=== PATIENT | female | born 1995 | race Caucasian/White ===

== ENCOUNTER 2017-04-10 14:31 | Emergency (ER) | payer MEDICAID ==
[2017-04-10] MEDS ORDERED: NS 0.9% 1000 ML* 1,000 ML IV ONE (14:44)
[2017-04-10] MEDS ORDERED: Ondansetron INJ* 2 MG/ML VIAL IV ONE (14:44)
[2017-04-10 16:14] LABS: Hematocrit 40 % (35-47); Hemoglobin 13.5 g/dl (12.0-16.0); Mean Corpuscular HGB Conc 34 g/dl (31-36); Mean Corpuscular Hemoglobin 30 pg (27-31); Mean Corpuscular Volume 88 fL (80-97); Mean Platelet Volume 7 um3 (7.4-10.4); Red Blood Count 4.52 10^6/ul (4.0-5.4); Red Cell Distribution Width 13 % (10.5-15); White Blood Count 9.7 10^3/ul (3.5-10.8)
[2017-04-10 16:40] LABS: ALT 12 U/L (7-52); AST 17 U/L (13-39); Albumin 4.4 g/dL (3.2-5.2); Alkaline Phosphatase 53 U/L (34-104); Anion Gap 5 mmol/L (2-11); Blood Urea Nitrogen 8 mg/dL (6-24); C Reactive Protein < 1.00 mg/L (< 5.00); CO2 Carbon Dioxide 28 mmol/L (22-32); Calcium 9.3 mg/dL (8.6-10.3); Chloride 103 mmol/L (101-111); EGFR African American 129.4 (>60); EGFR Non-African American 100.6 (>60); Globulin 2.5 g/dL (2-4); Glucose 74 mg/dL (70-100); Potassium 3.7 mmol/L (3.5-5.0); Sodium 136 mmol/L (133-145); Total Protein 6.9 g/dL (6.4-8.9)
--- NOTE | 2017-04-10 17:01 | RAD ---
INDICATION: Ataxia. COMPARISON: Comparison is made with a prior MRI of the brain from November 21, [address] of the brain from January 04, 2015. TECHNIQUE: Contiguous axial sections of the brain were obtained from the skull base to the vertex without contrast. FINDINGS: The ventricles, cisterns and sulci are within normal limits. No significant focal abnormality or mass effect is seen. There is no evidence for hemorrhage. No significant focal osseous abnormality is seen. The visualized portion of the paranasal sinuses and mastoid air cells appear clear. IMPRESSION: NO EVIDENCE FOR GROSS ACUTE INFARCT, MASS EFFECT OR HEMORRHAGE.
[2017-04-10 17:57] LABS: Urine Bilirubin Negative (Negative); Urine Glucose Negative (Negative); Urine Nitrite Negative (Negative)
[2017-04-10 19:17] VITALS: BP 110/51
--- NOTE | 2017-04-10 21:54 | CONS ---
CONSULTATION REPORT: DATE OF CONSULT: 04/10/17 LOCATION: She is currently in the ED. REASON FOR CONSULT: Accidental Lamictal overdose. HISTORY OF PRESENT ILLNESS: Ms. Ta is a very nice 21-year-old female who has a history of seizure disorder for several years. She is followed by Dr. Morel who initially saw her in October 2014. She does have a history of an EEG done in the past which was abnormal demonstrating some focal left temporal occipital mixed theta- delta range, slow wave paroxysms suggestive of some focal underlying organic changes at those regions. None had any clear-cut intermixed spike nor sharp wave discharges nor did such occur isolated during the tracing, remote from these slowings. Again, these findings may suggest some focal underlying organic changes at that region; however, no epileptiform discharges were seen. She has no significant risk factors for seizures including no history of infantile seizures or febrile seizures. No history of head injury or meningitis. No family history of seizures that she is aware of. In August and September 2014, she developed generalized tonic-clonic like seizures. She was seen by Dr. Morel and at that time a workup was done. She was subsequently put on Lamictal and has been treated with that medication. Most recently, she has been on 200 mg p.o. b.i.d. She saw Dr. Morel on Thursday and her dose was increased but rather than 100 mg pills, she had 200 mg pills. Her dose was increased to 400 mg in the morning and 600 mg at night. She has been taking that since Thursday and over the last several days, has become more confused, more dizzy. She notes seeing double at times. She notes feeling off balance. She has felt very nauseated, some abdominal pain, and more somnolent. This has been worsening over the last several days and today she woke up and was very confused and had difficulty walking. Based on this, our office was called and her history was obtained. She was instructed to go to the ER. Upon arrival in the ER, she actually looks good. She is sitting in a wheelchair. She is pleasant, able to answer questions. Her boyfriend and aunt were at the bedside. She does note that she smokes marijuana occasionally. Her last use was yesterday. She has been clean from alcohol for little over a month. Prior to that, she was drinking heavily. She continues to have some intermittent seizure-like activity. She states that her last generalized tonic-clonic seizure was a while back, but she does have occasional episodes where she stares off or gets somewhat confused. She is postictal afterwards. She does have occasional bladder incontinence and tongue biting most of the time. She states that she felt like that she was going to have a seizure yesterday, but did not have a full-blown seizure. She currently notes some nausea. She has been "spitting up but no copious vomiting." She notes some abdominal pain that is intermittent in nature, some dizziness, feelings of off balance and some double vision. She denies any shortness of breath, dyspnea on exertion, chest pain, headache, hearing changes. She has noted some mild perioral numbness, but otherwise no focal numbness, tingling, or weakness. No difficulty speaking or swallowing. She has had some difficulty ambulating. She also has been exposed to some people that have had the flu, but she has not had any flu-like symptoms, although she does report a mild low- grade fever this morning. PAST MEDICAL HISTORY: As above. PAST SURGICAL HISTORY: Negative. MEDICATIONS: Include: 1. Lamictal 200 mg p.o. b.i.d., recently increased and over the last 5 days has been taking 400 mg in the morning and 600 at night. 2. She also takes ibuprofen as needed. ALLERGIES: AMOXICILLIN, PENICILLIN, and SULFA DRUGS. FAMILY HISTORY: Noncontributory. No family history of seizures. SOCIAL HISTORY: She was recently fired from her work. She was a hotel houseman. She smokes occasional marijuana, last use yesterday. She was drinking heavily until about a month ago. She was drinking up to 12 pack per day, but states she has been clean since that time. She denies any recent sexual activity. States that her last menstrual period was approximately 1 month ago. States that she is not . REVIEW OF SYSTEMS: Her review of systems in 14-organ systems as noted above, otherwise negative. PHYSICAL EXAM: Vital Signs: Temperature 99.1, pulse rate of 83, respiratory rate of 20, pulse ox 100%, blood pressure 113/53. In general, she is a well- nourished, well-developed female, in no acute distress. She is sitting in her hospital bed. She is pleasant, well dressed, well groomed and her boyfriend and aunt are at the bedside. HEENT: She is normocephalic, atraumatic. Sclerae are anicteric. Mucous membranes are moist. Oropharynx is clear. Nares are patent. Neck is supple. No thyromegaly. No carotid bruits. Chest: Clear to auscultation bilaterally. Cardiovascular: Regular rate and rhythm without murmurs. Abdomen: Nondistended. No significant tenderness. Extremities: No clubbing, cyanosis, or edema. Her skin is warm and dry. No rashes or lesions. On neurologic exam, she is awake, alert, and oriented x3. Her speech is fluent. There is no dysarthria or repetition. Recall of recent and remote events is intact. Vocabulary is intact. Her mood is dysthymic. Affect, mood congruent. Cranial nerves II through XII: Pupils are equal, round, and reactive to light. Extraocular muscles are intact. There is no misalignment or strabismus noted. She does note diplopia in all visual fonseca. Visual fonseca to confrontation are intact. Her face is symmetric. Sensation is intact. Hearing is intact bilaterally. Her palate raises symmetrically. Tongue is midline. Sternocleidomastoid and trapezius are intact. Her motor exam, 5/5 throughout. Tone and bulk are both normal. DTRs are 2+ and symmetric in the upper and lower extremities bilaterally. Babinski is downgoing. [id number] , rapid alternating movements were intact without tremor. There is no resting tremor noted. No dysdiadochokinesia or dysmetria. Her gait, she stood up but felt off balance and I sat her back down. DIAGNOSTIC STUDIES/LAB DATA: Currently lab work, she has a CMP, a CBC with diff and a Lamictal level as well as a urine test pending. ASSESSMENT AND PLAN: Ms. Ta is a 21-year-old female who has a history of generalized tonic-clonic epilepsy, previously treated on Lamictal. Most recently, her dose was changed from 200 mg p.o. b.i.d. and over the last 5 days has been taking 400 mg in the morning and 600 mg at night. Over the last few days, has become more dizzy, nauseated, confused, double vision, some abdominal pain. She called the office this morning and was instructed by Dr. Lowery to go to the ER immediately. She arrived here. In general, she looks good. She denies any recent vomiting, but does feel some nausea and some abdominal pain. She is alert and oriented x3. Her examination is nonfocal except for some double vision and she feels unsteady when trying to walk, but otherwise, no focality to her examination. She denies any recent falls or head trauma. She denies any headache or neck stiffness. At this point, I suspect that she is suffering the ill effects of Lamictal toxicity. Typically, Lamictal toxicity is associated with blood dyscrasias, can be associated with dizziness and confusion, somnolence, nausea and vomiting. She did take her Lamictal dose 400 mg this morning. I discussed with the patient the pathophysiology of the medicine and the half life. The plan is to hold all medications for the next 24 hours. Her last dose was this morning. She is not to restart her medication until tomorrow night, at which point she will start her old dose of 200 mg p.o. b.i.d. We will check a complete metabolic profile as well as her CBC with diff to rule out any underlying liver dysfunction, blood dyscrasias, kidney dysfunction. She is going to be hydrated in the ER, treated with some Zofran. She feels like she can likely go home. We will watch her in the ER. If she stabilizes and does well and her nausea can be managed at home, I am okay if she goes home. She understands the plan to hold the Lamictal. I plan to schedule her to see us back on Thursday when in [place] as she has no transportation. She will return to the ER with any new symptoms or concerns. If she does not improve in the ER, she may be admitted overnight for observation. I would continue to hydrate her, hold her medication until tomorrow night, restarting at 200 mg p.o. b.i.d. at that point and treating her symptoms as necessary. Her examination is completely nonfocal other than the diplopia and balance issues, which both can be attributed to the Lamictal. I will have the ER doctor get a head CT to make sure there is no intracranial pathology. Thank you for the opportunity to participate in her care. [id number]/[facility] #: [id number] DELANEY
--- NOTE | 2017-04-12 08:20 | ED ---
Anant Venegas Angela, scribed for Mason Carlos MD on 04/10/17 at 1459 . Neurological HPI - HPI Summary HPI Summary: This pt is a 21 y/o female presenting to [facility] c/o diplopia, unsteady gait, lethargy, nausea/vomiting since yesterday at around 12:30. Pt reports she usually takes 400 mg of Lamictal but 4 days ago her dose was increased by her PCP. She states her dose was increased to 1000 mg/day. She has only taken 600 mg 4 days ago (on Thursday) and 400 mg 3 days ago (on Thursday). Pt states that upon waking up today she felt "off." She notes that since her medications were increased in dosage her symptoms have been worsening. Today while talking to her PCP she couldn't remember her . Pt was driving to her PCP's office in [place] when she realized her PCP was in his office in [place]. - History of Current Complaint Chief Complaint: EDGeneral Stated Complaint: NEEDS LAB WORK Time Seen by Provider: 04/10/17 14:44 Hx Obtained From: Patient Hx Last Menstrual Period: 01/16/15 Onset/Duration: Started days ago, Still Present Timing: Constant Pain Intensity: 0 Character: Visual Changes - diplopia, Other: - diplopia, unsteady gait, lethargy , nausea/vomiting, memory loss - Allergy/Home Medications Allergies/Adverse Reactions: Allergies Allergy/AdvReac Type Severity Reaction Status Date / Time Amoxicillin Allergy Unknown Verified 02/02/15 13:31 Reaction Details Penicillins [PCN] Allergy Unknown Verified 02/02/15 13:31 Reaction Details Sulfa Antibiotics Allergy Unknown Verified 02/02/15 13:31 Reaction Details dilantin AdvReac Intermediate GI Uncoded 02/02/15 13:31 Home Medications: Home Medications lamoTRIgine TAB(*) [LaMICtal TAB(*)] 200 mg PO BID 04/10/17 [History Confirmed 04/10/17] PMH/Surg Hx/FS Hx/Imm Hx Endocrine/Hematology History: Denies: Hx Diabetes Cardiovascular History: Denies: Hx Hypertension, Hx Pacemaker/ICD Sensory History: Denies: Hx Hearing Aid Psychiatric History: Denies: Hx Panic Disorder Infectious Disease History: No Infectious Disease History: Denies: Traveled Outside the [place] in Last 30 Days - Family History Known Family History: Negative: Hypertension, Diabetes - Social History Alcohol Use: Occasionally Alcohol Amount: uknown arrived 2209; intoxicated Hx Substance Use: Yes Substance Use Type: Reports: Marijuana Substance Use Comment - Amount & Last Used: generally a few times a day; none in past 4 days Hx Tobacco Use: Yes Smoking Status (MU): Light Every Day Tobacco Smoker Type: Cigarettes Amount Used/How Often: 3 cigarettes daily Length of Time of Smoking/Using Tobacco: 1 year off & on Review of Systems Positive: Other - lethargy. Negative: Fever, Chills Positive: Diplopia Cardiovascular: Negative Respiratory: Negative Positive: Vomiting, Nausea Genitourinary: Negative Neurological: Other - unsteady gait, memory loss. All Other Systems Reviewed And Are Negative: Yes Physical Exam - Summary Physical Exam Summary: VITAL SIGNS: Reviewed. GENERAL: Patient is a well-developed and nourished (MALE OR FEMALE) who is lying comfortable in the stretcher. Patient is not in any acute respiratory distress. HEAD AND FACE: No signs of trauma. No ecchymosis, hematomas or skull depressions. No sinus tenderness. EYES: PERRLA, EOMI x 2, No injected conjunctiva, no nystagmus. No photophobia. Pt has diplopia. EARS: Hearing grossly intact. Ear canals and tympanic membranes are within normal limits. MOUTH: Oropharynx within normal limits. NECK: Supple, trachea is midline, no adenopathy, no JVD, no carotid bruit, no c- spine tenderness, neck with full ROM. No meningeal signs, no Kernig's or brudzinskis signs. CHEST: Symmetric, no tenderness at palpation LUNGS: Clear to auscultation bilaterally. No wheezing or crackles. CVS: Regular rate and rhythm, S1 and S2 present, no murmurs or gallops appreciated. ABDOMEN: Soft, non-tender. No signs of distention. No rebound no guarding, and no masses palpated. Bowel sounds are normal. EXTREMITIES: FROM in all major joints, no edema, no cyanosis or clubbing. NEURO: Alert and oriented x 3. Speech is normal and follows commands. Pt has ataxia and diplopia, otherwise pt is neurologically intact. SKIN: Dry and warm GCS: 15 Triage Information Reviewed: Yes Vital Signs On Initial Exam: Initial Vitals Temp Pulse Resp BP Pulse Ox 99.1 F 83 20 113/53 100 04/10/17 14:39 04/10/17 14:39 04/10/17 14:39 04/10/17 14:39 04/10/17 14:39 Vital Signs Reviewed: Yes Diagnostics - Vital Signs Vital Signs Temp Pulse Resp BP Pulse Ox 04/10/17 14:39 99.1 F 83 20 113/53 100 - Laboratory Result Diagrams: 04/10/17 15:53 04/10/17 15:53 Lab Statement: Any lab studies that have been ordered have been reviewed, and results considered in the medical decision making process. - CT Brain CT CT Interpretation: No Acute Changes - IMPRESSION: No evidence for gross acute infarct, mass effect or hemorrhage. ED physician has reviewed this radiology report and agrees. CT Interpretation Completed By: Radiologist - EKG 1512 Cardiac Rate: NL - 83 bpm EKG Rhythm: Sinus Rhythm EKG Interpretation: No ST elevations Course/Dx - Course Assessment/Plan: This pt is a 21 y/o female presenting to [facility] c/o diplopia, unsteady gait, lethargy, nausea/vomiting since yesterday at around 12:30. Pt reports she usually takes 400 mg of Lamictal but 4 days ago her dose was increased by her PCP. She states her dose was increased to 1000 mg/day. She has only taken 600 mg 4 days ago (on Thursday) and 400 mg 3 days ago (on Thursday). Pt states that upon waking up today she felt "off." She notes that since her medications were increased in dosage her symptoms have been worsening. Today while talking to her PCP she couldn't remember her . Pt was driving to her PCP's office in [place] when she realized her PCP was in his office in [place]. Test results without any significant abnormalities. UA is negative for UTI. A head CT is recommended by Dr. Arreola, neurologist. CT head is negative for intracranial pathology. As per recommendation of Dr. Arreola, pt can be discharged home with instruction of start taking Lamictal 200 mg BID and two more at night. Pt will follow up with Dr. Arreola on Thursday. The pt is no longer nauseous; she was hydrated and has no other complaints. Family member will stay with the pt all these days until seen by Dr. arreola. Pt is hemodynamically stable , alert and oriented x3. - Diagnoses Provider Diagnoses: Lamictal overdose Discharge - Discharge Plan Condition: Stable Disposition: HOME Patient Education Materials: Adult Overdose (ED) Referrals: Hieu Carpio MD [Primary Care Provider] - Additional Instructions: Please follow up with your primary care provider. The documentation as recorded by the Anant moctezuma Angela accurately reflects the service I personally performed and the decisions made by , Mason Carlos MD.
== END 2017-04-10 18:12 | disposition home or self-care (01) ==
LOC: ED 14:31
DX: T42.6X1A Poisoning by other antiepileptic and sedative-hypnotic drugs, accidental (unintentional), initial encounter (principal); H53.2 Diplopia; R26.81 Unsteadiness on feet; R11.2 Nausea with vomiting, unspecified; R41.3 Other amnesia; Y92.9 Unspecified place or not applicable; Z88.0 Allergy status to penicillin; Z88.2 Allergy status to sulfonamides; Z88.8 Allergy status to other drugs, medicaments and biological substances; F12.90 Cannabis use, unspecified, uncomplicated; F17.210 Nicotine dependence, cigarettes, uncomplicated
CPT/HCPCS: 36415; 70450; 80053; 80175; 81003; 84702; 85025; 86140; 93005

== ENCOUNTER 2017-10-12 14:00 | Inpatient (IN) | payer OTHER ==
[2017-10-12] MEDS ORDERED: Acetaminophen TAB* 325 MG PO PRN (15:59)
[2017-10-12] MEDS ORDERED: LORazepam INJ* 2 MG/ML 1 ML VIAL IV PRN (15:59)
[2017-10-12] MEDS ORDERED: diPHENhydraMINE PO* 25 MG PO PRN (15:59)
--- NOTE | 2017-10-12 16:16 | ADMNOTE ---
Admission Note HPI - HPI Handedness: DOS 10/12/17 H&P right History of Present Illness: Lupis Ta is a 21 year old woman with a history of seizure-like events since 2014. She was initially evaluated by Dr. Morel in October 2014, reporting the onset of 3 generalized seizures within a few hours of each other, having never experienced a seizure in the past. His note indicates she had "felt weird" that morning, possibly unfocused. She reported feeling as though she could "taste something I was looking at", then lost consciousness and had generalized shaking. One of these events was associated with oral trauma and possibly incontinence. She underwent EEG which was reported to show left temporal slowing without discharges and MRI of the brain which was reported to be normal. She was started on Keppra and had irritability, so it was discontinued. She was then started on lamotrigine and phenytoin was briefly added because of a breakthrough seizure while titrating lamotrigine. She did not tolerate this and Keppra was briefly added back while she titrated lamotrigine, despite this causing mood problems. She noted triggers to include stress and anger. She continued to experience intermittent seizures until reaching a dose of 200mg BID , at which point she was seizure-free for several month until seizures returned. However, she endorsed heavy alcohol use at that time (September 2016), up to 12 beers per day. Lamotrigine was increased but she became toxic with a level of 23 in March 2017. She is now taking 200mg QAM and 300mg QPM and a level in April was around 11. Today, Lupis and her boyfriend give good history of the events. She reports that she often gets a warning of suddenly being able to taste or smell food. This can be almost anything and she describes recent events to include mohawk vanilla creamer and Cheetos. It is never unpleasant. She has two types of events. She has what they call "silent seizures" which involve her being unable to speak, staring straight ahead and fidgeting with both hands. She also has lip licking during these events. Her boyfriend says they last "less than 5 minutes" and sometimes do not progress past this but she will be confused afterward. Her periods of confusion have been getting worse such that she did not recognize family members recently and was doing strange things like googling herself and trying to find herself on Facebook even though she does not have a page on there. He estimates she has had 7 of these in the past 2 months with the most recent being a week ago. She can sometimes have 3 or 4 in a day when she does experience them. She sleeps excessively afterward, up to 16 hours. As a result, she is missing a lot of work. Sometimes these events then progress into the second type of event, which is a convulsion. Her boyfriend describes whole body shaking with eyes open, no clear head turning, lasting about a minute and often associated with oral trauma and sometimes urinary incontinence. The last time this occurred was about a month and a half ago. She does not know if lamotrigine has really helped. She does feel her events are related to stress, but also says she does not know what triggers them and they can be "random". She has a history of heavy drinking, as recently as earlier this month which was the anniversary of her father's in 2016 ( September 24). However, she denies ever noticing a connection between heavy drinking and seizures. She has used many illicit drugs in the past including snorting heroin, cocaine and taking "lots of pills", but she has not done any drugs aside from marijuana for the past 10 months. She requests help with navigating system because she's been trying to get SSI but has been directed back to her neurologist despite going to [facility], mental health, etc Epilepsy Risk Factors: Dropped from a rocking chair around 6 months of age, has a scar on her lip but no other known head trauma. Denies h/o HELIX COIL WINDER infection, learning disability. Thinks she was full term, met milestones on time. No known FH of epilepsy PNEA Risk Factors: H/o anxiety, depression, reports bipolar d/o. H/o polysubstance abuse. Best friend (Jake) just before these started and father of cancer just after. PMH/Surg Hx/FS Hx/Imm Hx Previously Healthy: Yes Endocrine/Hematology History: Denies: Hx Diabetes Cardiovascular History: Denies: Hx Hypertension, Hx Pacemaker/ICD Sensory History: Denies: Hx Hearing Aid Neurological History: Reports: Hx Seizures Psychiatric History: Reports: Hx Anxiety, Hx Depression, Hx Bipolar Disorder Denies: Hx Panic Disorder Infectious Disease History: Denies: Traveled Outside the [place] in Last 30 Days - Family History Known Family History: Negative: Hypertension, Diabetes - Social History Occupation: Employed Full-time - [employer] in [place] Alcohol Use: Occasionally - and heavy at times Hx Substance Use: Yes Substance Use Type: Reports: Marijuana Substance Use Comment - Amount & Last Used: daily Hx Tobacco Use: Yes Smoking Status (MU): Light Every Day Tobacco Smoker Type: Cigarettes Amount Used/How Often: 5 cigarettes daily Length of Time of Smoking/Using Tobacco: 1 year off & on EMU Exam - Exam Physical/Neurological Exam: Physical Exam: General: Well appearing in no acute distress. She is thin Eyes: normal conjunctiva, pupils were equal and reactive. Neck: supple, no bruit ENT: atraumatic, normal oropharynx Pulmonary: clear to auscultation, good respiratory effort Cardiac: regular rate and rhythmic, no murmurs/rubs/gallops, pulses palpable MSK: no extremity deformities Derm: no rashes or lesions Neurological Exam: Mental Status: Awake and alert. Oriented to person, place, and time. Fluent. Comprehension intact. Affect appropriate. Cranial Nerves: Visual fonseca full to confrontation. Pupils were equal, round, and reactive constricting from 3mm to 2mm. Versions were full and without nystagmus. Facial musculature and sensation were symmetric. Hearing grossly intact to finger rub. Palate was upgoing bilaterally. Tongue was midline. Shoulder shrug was symmetric. Motor: Bulk, tone, and strength were normal throughout. Pronator drift was absent. There were no abnormal movements. Sensory: Sensation to light touch, temperature intact. Romberg was deferred. Coordination: Finger to nose and heel to mathew were intact. Reflexes: 2+ throughout the upper and lower extremities with downgoing toes bilaterally. Gait: not observed EMU Review of Systems Review of Systems: A 12 point review of systems was completed and significantly positive for: weight loss despite good appetite. The remainder of the review was negative except as stated above in the HPI. EMU Diagnostics - Diagnostic Most Recent Vital Signs: not yet available Interim video-EEG long-term monitoring report: EEG 11/21/2014: left temporal slowing with some spread to occipital region, no discharges Radiology Impressions: MRI brain dated 11/21/14 interpreted as normal EMU Assessment/Plan - Assessment/Plan Assessment/Plan: This is a 21 year old right-handed woman with a history of events of staring associated with manual and oral automatisms as well as generalized convulsions since 2015. She has been treated with lamotrigine and continues to experience events, sometimes in clusters, despite compliance with medication. Triggers seem to include stress and emotion, particularly anger. The differential includes both epileptic and non-epileptic event, but given the description of events and previous EEG there is high suspicion for epilepsy, in particular localization-related arising from the left hemisphere given the report of speech arrest. She has been having trouble maintaining steady employment due to these events, recovery after the fact, and anxiety around having events while alone at work. In addition, her boyfriend has been instructed to stay home with her while she is recovering and has been missing work as well. They are requesting help with trying to get SSI for this reason. The goal of the present [facility] video/EEG monitoring session is to characterize these events and to evaluate the EEG for epileptiform activity. Plan: Admit to the Epilepsy Service, Dr. Mack attending marine oil terminal superintendent video EEG monitoring for the purpose of characterizing events above Seizure precautions IV lorazepam as needed for GTC. Call Dr Mack if given Home AED regimen: lamotrigine 200mg QAM and 300mg QPM. Decrease to 150mg tonight and 100mg tomorrow AM, then anticipate further decreasing to 50mg BID and then stop will request social work consult.
[2017-10-12] MEDS ORDERED: Lidocaine 1% MPF* 2 ML VIAL ONE (17:41)
[2017-10-12] MEDS ORDERED: Buffered Lidocaine 0.9% SYRIN* 5 ML/SYR SYRINGE ONE (17:43)
[2017-10-12] MEDS ORDERED: lamoTRIgine TAB(*) 100 MG PO SCH ×2 (18:00→20:00)
[2017-10-12] MEDS ORDERED: Nicotine Inhaler* 10 MG AMP INH PRN (18:18)
[2017-10-12] MEDS ORDERED: Mouth Piece, Nicotine* 1 EACH CARTRIDGE INH PRN (18:19)
[2017-10-13] MEDS ORDERED: lamoTRIgine TAB(*) 100 MG PO SCH ×2 (08:00→21:00)
[2017-10-13 10:32] VITALS: BP 104/50
--- NOTE | 2017-10-13 11:26 | PN ---
Epilepsy Service Progress Note Date of Service: 10/13/17 - Subjective Patient is having significant anxiety, crying, stating she wants to leave, hates hospitals. Has told nursing she wants to smoke weed and cigarettes. Has been using nicotine inhaler, offered nicotine patch. Boyfriend and aunt have reinforced that she needs to try to stay. She says she feels fine, does not feel like a seizure is going to happen and doesn't want to stay. Had lengthy discussion with pt. - Medications Active Medications: Acetaminophen (Tylenol Tab*) 650 mg PO Q6H PRN PRN Reason: PAIN Device (Nicotine Mouth Piece*) 1 each INH .FOR USE WITH MED PRN PRN Reason: CRAVINGS Last Admin: 10/12/17 18:18 Dose: 1 each Diphenhydramine HCl (Benadryl Po*) 25 mg PO Q6H PRN PRN Reason: ITCHING Lamotrigine (Lamictal Tab(*)) 100 mg PO QAM@0800 [facility] Last Admin: 10/13/17 07:57 Dose: 100 mg Lamotrigine (Lamictal Tab(*)) 150 mg PO QPM@2000 [facility] Last Admin: 10/12/17 19:56 Dose: 150 mg Lorazepam (Ativan Inj*) 1 mg IV Q8H PRN PRN Reason: Generalized Tonic Clonic Seizu Nicotine (Nicotine Inhaler*) 10 mg INH Q2H PRN PRN Reason: CRAVINGS Last Admin: 10/12/17 18:16 Dose: 10 mg EMU Diagnostics - Diagnostic Most Recent Vital Signs: Vital Signs: Temp Pulse Resp BP Pulse Ox 97.8 F 60 20 104/50 100 10/13/17 07:59 10/13/17 07:59 10/13/17 08:15 10/13/17 07:59 10/13/17 07:59 Interim video-EEG long-term monitoring report: #01 10/12: Medications: LTG 150mg PM and 100mg AM Not completely reviewed yet but up till 11pm last night, background was normal with PDR 10. No events EMU Exam - Exam Physical/Neurological Exam: Physical Exam: General: Crying, anxious, laying in bed with boyfriend. Eyes: injected conjunctiva 2/2 crying MSK: no extremity deformities Derm: no rashes or lesions Neurological Exam: Mental Status: Awake and alert. Fluent. Comprehension intact. Affect anxious, emotional Cranial Nerves: Face symmetric. Motor: Moves all extremities antigravity equally Sensory: not retested. Coordination: not retested. Reflexes: not retested Gait: not observed EMU Progress Note Assessment/P - Assessment/Plan Assessment: 21 year old right-handed woman with a history of events of staring associated with manual and oral automatisms as well as generalized convulsions since 2015. She has been treated with lamotrigine and continues to experience events, sometimes in clusters, despite compliance with medication. Triggers seem to include stress and emotion, particularly anger. The differential includes both epileptic and non-epileptic event, but given the description of events and previous EEG there is high suspicion for epilepsy, in particular localization- related arising from the left hemisphere given the report of speech arrest. She is having a lot of trouble tolerating this admission due to nicotine and marijuana habits as well as anxiety. Discussed importance of current admission and that if she leaves now, we will not know anything more about her condition or how to help her than we did before she came in. Offered nicotine patch, she declines. Will try prn hydroxyzine for anxiety. Pt also worried about boyfriend leaving for his 12 hour work shift tonight, but others will be coming to stay with her. Encouraged her to stay, provided reassurance, she seemed agreeable to staying at this point. No typical events recorded yet. Plan: * Continue sider mechanic video EEG monitoring to capture typical episodes * Seizure precautions * IV lorazepam as needed for GTC. Call Dr Mack if given * Home AED regimen: lamotrigine 200mg QAM and 300mg QPM. Decrease to 50mg BID x2 doses and then stop * social work consult. * reminded pt that as we are decreasing meds, it would be best to have at least 24 hours notice if she wishes to be discharged early if we need to restart meds. * hydroxyzine 25mg po TID prn anxiety * continue nicotine inhaler
[2017-10-13] MEDS: hydrOXYzine HCL TAB* 25 MG PO PRN ×2 (11:56→11:57)
[2017-10-13] MEDS ORDERED: lamoTRIgine TAB(*) 100 MG PO ONE (15:00)
--- NOTE | 2017-10-13 15:12 | DS ---
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 She was initially evaluated by Dr. Morel in October 2014, reporting the onset of 3 generalized seizures within a few hours of each other, having never experienced a seizure in the past. His note indicates she had "felt weird" that morning, possibly unfocused. She reported feeling as though she could "taste something I was looking at", then lost consciousness and had generalized shaking. One of these events was associated with oral trauma and possibly incontinence. She underwent EEG which was reported to show left temporal slowing without discharges and MRI of the brain which was reported to be normal. She was started on Keppra and had irritability, so it was discontinued. She was then started on lamotrigine and phenytoin was briefly added because of a breakthrough seizure while titrating lamotrigine. She did not tolerate this and Keppra was briefly added back while she titrated lamotrigine, despite this causing mood problems. She noted triggers to include stress and anger. She continued to experience intermittent seizures until reaching a dose of 200mg BID , at which point she was seizure-free for several month until seizures returned. However, she endorsed heavy alcohol use at that time (September 2016), up to 12 beers per day. Lamotrigine was increased but she became toxic with a level of 23 in March 2017. She is now taking 200mg QAM and 300mg QPM and a level in April was around 11. Today, Lupis and her boyfriend give good history of the events. She reports that she often gets a warning of suddenly being able to taste or smell food. This can be almost anything and she describes recent events to include portuguese vanilla creamer and Cheetos. It is never unpleasant. She has two types of events. She has what they call "silent seizures" which involve her being unable to speak, staring straight ahead and fidgeting with both hands. She also has lip licking during these events. Her boyfriend says they last "less than 5 minutes" and sometimes do not progress past this but she will be confused afterward. Her periods of confusion have been getting worse such that she did not recognize family members recently and was doing strange things like googling herself and trying to find herself on Facebook even though she does not have a page on there. He estimates she has had 7 of these in the past 2 months with the most recent being a week ago. She can sometimes have 3 or 4 in a day when she does experience them. She sleeps excessively afterward, up to 16 hours. As a result, she is missing a lot of work. Sometimes these events then progress into the second type of event, which is a convulsion. Her boyfriend describes whole body shaking with eyes open, no clear head turning, lasting about a minute and often associated with oral trauma and sometimes urinary incontinence. The last time this occurred was about a month and a half ago. She does not know if lamotrigine has really helped. She does feel her events are related to stress, but also says she does not know what triggers them and they can be "random". She has a history of heavy drinking, as recently as earlier this month which was the anniversary of her father's in 2016 ( September 24). However, she denies ever noticing a connection between heavy drinking and seizures. She has used many illicit drugs in the past including snorting heroin, cocaine and taking "lots of pills", but she has not done any drugs aside from marijuana for the past 10 months. She requests help with navigating system because she's been trying to get SSI but has been directed back to her neurologist despite going to [facility], mental health, etc Admission Examination: Physical Exam: General: Well appearing in no acute distress. She is thin Eyes: normal conjunctiva, pupils were equal and reactive. Neck: supple, no bruit ENT: atraumatic, normal oropharynx Pulmonary: clear to auscultation, good respiratory effort Cardiac: regular rate and rhythmic, no murmurs/rubs/gallops, pulses palpable MSK: no extremity deformities Derm: no rashes or lesions Neurological Exam: Mental Status: Awake and alert. Oriented to person, place, and time. Fluent. Comprehension intact. Affect appropriate. Cranial Nerves: Visual fonseca full to confrontation. Pupils were equal, round, and reactive constricting from 3mm to 2mm. Versions were full and without nystagmus. Facial musculature and sensation were symmetric. Hearing grossly intact to finger rub. Palate was upgoing bilaterally. Tongue was midline. Shoulder shrug was symmetric. Motor: Bulk, tone, and strength were normal throughout. Pronator drift was absent. There were no abnormal movements. Sensory: Sensation to light touch, temperature intact. Romberg was deferred. Coordination: Finger to nose and heel to mathew were intact. Reflexes: 2+ throughout the upper and lower extremities with downgoing toes bilaterally. Gait: not observed Admission AED Medications: lamotrigine 200mg QAM and 300mg QPM Hospital Course: The patient was admitted to the epilepsy service for long-term video EEG monitoring. The patient had 2 events consisting of semi-responsiveness and lip smacking associated with retained ability to follow commands though not as readily on the left side as on the right. She was able to remember part of a recall phrase during the second event. She reported feeling hot and dizzy immediately following the event. With the second event, she had some manual automatisms as well with the right hand. These were considered typical of events that the was having at home. During these events, the EEG showed rhythmic activity which began in the right temporal region, then spread to involve much of the right hemisphere. The following medication medication changes were made during the testing: none It is recommended that an additional medication be added to the patient's regimen but she had to leave abruptly, at her request, and this will be further discussed with the outpatient neurologist, Dr. Arreola Discharge Examination: same as admission. In addition, her gait was narrow-based and stable. Destination: Home. Diet: Regular. Follow-up: with Dr. Arreola as previously scheduled. Home Medications Medication Instructions Recorded Confirmed Type lamoTRIgine TAB(*) [Lamictal 200 mg PO QAM 04/10/17 10/12/17 History TAB(*)] lamoTRIgine [Lamotrigine] 300 mg PO QPM 10/12/17 10/12/17 History
--- NOTE | 2017-10-13 15:13 | EEG ---
[facility] VIDEO/EEG MONITORING - Monitoring Monitoring Start Date: 10/12/17 Current Monitoring Session: 10/12/17 to 10/13/17 EEG Clinical Indication: 21 year old right-handed woman with a history of events of staring associated with manual and oral automatisms as well as generalized convulsions since 2014. She has been treated with lamotrigine and continues to experience events, sometimes in clusters, despite compliance with medication. Triggers seem to include stress and emotion, particularly anger. The differential includes both epileptic and non-epileptic event, but given the description of events and previous EEG there is high suspicion for epilepsy, in particular localization- related arising from the left hemisphere given the report of speech arrest. The goal of the present nursing home video/EEG monitoring session is to characterize these events and to evaluate the EEG for epileptiform activity. Introduction: INTRODUCTION: The EEG was monitored from 21 scalp electrodes. Nineteen electrodes consisted of the standard parasagittal, temporal and midline leads of the International 10 -20 system. In addition, special electrodes FT9 and FT10 were placed. EEG data were recorded on an [place] system with simultaneous MPEG-4 digital video recording of patient behavior. EEG recording was in a monopolar montage with all electrodes referenced to FCz. Significant behavioral events were signaled by an event button, or putative electrical seizure events were detected by a computer program. All EEG data were reviewed in their entirety on a monitor with reconstruction of montages and adjustments of sensitivity and filtering. Simultaneous patient behavior was viewed on an adjacent monitor and correlated with the EEG. - Medications Active Medications: Acetaminophen (Tylenol Tab*) 650 mg PO Q6H PRN PRN Reason: PAIN Device (Nicotine Mouth Piece*) 1 each INH .FOR USE WITH MED PRN PRN Reason: CRAVINGS Last Admin: 10/12/17 18:18 Dose: 1 each Diphenhydramine HCl (Benadryl Po*) 25 mg PO Q6H PRN PRN Reason: ITCHING Hydroxyzine HCl (Atarax Tab*) 25 mg PO TID PRN PRN Reason: ANXIETY Last Admin: 10/13/17 11:57 Dose: 25 mg Lamotrigine (Lamictal Tab(*)) 50 mg PO BID HARRIET Stop: 10/14/17 09:01 Lorazepam (Ativan Inj*) 1 mg IV Q8H PRN PRN Reason: Generalized Tonic Clonic Seizu Nicotine (Nicotine Inhaler*) 10 mg INH Q2H PRN PRN Reason: CRAVINGS Last Admin: 10/12/17 18:16 Dose: 10 mg - Description Background: The waking background showed appropriate organization with clearly defined anterior-posterior voltage and frequency gradients. There was a defined posterior dominant rhythm of [] Hertz, which was symmetrical and showed normal reactivity. Anteriorly, there was the expected pattern of lower voltage and more irregular theta and beta rhythms. The sleep background was appropriately organized with well-developed spindles and vertex waves indicative of stage 2 sleep. These sleep transients showed appropriate morphology and were bilaterally synchronous and symmetrical. Development of diffuse delta range frequencies with dropout of stage 2 architecture accompanied transition to slow wave sleep, and a lower voltage mixed frequency pattern associated with eye movements was consistent with REM sleep. No epileptiform abnormalities were recorded.
== END 2017-10-13 15:09 | disposition home or self-care (01) | DRG 53 ==
LOC: EMU 15:17
PROVIDERS: ADMIT Psychiatry & Neurology Neurology; ATTEND Psychiatry & Neurology Neurology
DX: G40.109 Localization-related (focal) (partial) symptomatic epilepsy and epileptic syndromes with simple partial seizures, not intractable, without status epilepticus (principal); F17.210 Nicotine dependence, cigarettes, uncomplicated; F41.9 Anxiety disorder, unspecified; F12.10 Cannabis abuse, uncomplicated; F32.9 Major depressive disorder, single episode, unspecified; Z79.899 Other long term (current) drug therapy
CPT/HCPCS: 95951; A9270-GY; J2060